=== PATIENT | male | born 1975 | race American Indian/Alaskan Native ===

== ENCOUNTER 2018-11-18 09:50 | Day surgery (SDC) | payer MEDICARE ==
[2018-11-18 11:28] LABS: Basophils % (Auto) 0.8 % (0.0-1.8); Eosinophils # (Auto) 0.1 K/mm3 (0.0-0.4); Eosinophils % (Auto) 1.8 % (0.0-4.3); Hematocrit 44.4 % (35.5-45.6); Hemoglobin 14.7 gm/dl (11.8-15.2); Lymphocytes # (Auto) 1.6 K/mm3 (1.2-5.4); Lymphocytes % (Auto) 40.5 % (13.4-35.0); Mean Corpuscular HGB Conc 33 % (32-34); Mean Corpuscular Volume 82 fl (84-94); Monocytes # (Auto) 0.5 K/mm3 (0.0-0.8); Monocytes % (Auto) 11.4 % (0.0-7.3); Platelet Count 326 K/mm3 (140-440); Red Blood Count 5.44 M/mm3 (3.65-5.03); Red Cell Distribution Width 13.3 % (13.2-15.2)
[2018-11-18 11:38] LABS: INR 0.92 (0.87-1.13)
[2018-11-18 11:39] LABS: Partial Thromboplastin Time 27.2 Sec. (24.2-36.6)
[2018-11-18 11:40] LABS: Blood Urea Nitrogen 19 mg/dL (9-20)
[2018-11-18] MEDS ORDERED: XYLOCAINE 1% 20 mL ONE (12:36)
--- NOTE | 2018-11-18 14:09 | Cat Scan Report ---
FINAL REPORT EXAM: CT HEAD/BRAIN WO CON HISTORY: Hydrocephelus, Myelopathy TECHNIQUE: CT examination of the head without IV contrast PRIORS: None. FINDINGS: No acute air-fluid level visualized in the included air-filled sinuses. Bone windows demonstrate no acute fracture. The brain is without mass, mass effect, hemorrhage, or acute infarct. There is no extra-axial intracranial bleed, brain bleed, or midline shift. The ventricles and sulci are age-appropriate. No CT evidence of hydrocephalus. IMPRESSION: No acute CVA, intracranial bleed, or brain mass
--- NOTE | 2018-11-18 15:33 | Procedure Note ---
Date of procedure: 11/18/18 Pre-op diagnosis: spinal stenosis, radiculopathy, hydrocephalus Post-op diagnosis: same Procedure: cervical, thoracic, and lumbar myelogram Findings: see report Anesthesia: local Surgeon: AARON MARCANO Estimated blood loss: none Pathology: none Condition: stable Disposition: same day
[2018-11-18 18:02] VITALS: BP 138/71
--- NOTE | 2018-11-19 07:45 | Fluoroscopy Report ---
FLUOROSCOPY MYELOGRAM 2+ REGIONS HISTORY: Hydrocephalus, myelopathy. DESCRIPTION OF PROCEDURE. Informed consent was obtained. A timeout was called. Sterile technique was utilized. Skin anesthetization was accomplished with 1% lidocaine. Supply Chain Assistant film of the lumbar region demonstrates posterior fusion hardware spanning from L3-S1. Initial attempt at lumbar puncture at L3-4 was unsuccessful secondary to surgical scarring. A second attempt was successful at the L1-2 level. There was spontaneous return of clear CSF. Approximately 12 cc of intrathecal contrast agent was injected. The contrast agent was free flowing throughout the lumbar region. However, at the level of T10-11, a severe stenosis was demonstrated. This was at the level where previously inserted neurostimulator wires terminate. Very little contrast agent could cross this point into the thoracic and cervical regions. Multiple manipulations were utilized to try to opacify the cervical and thoracic regions. It was decided to perform a delayed CT. The patient tolerated the procedure without difficulty. IMPRESSION: A severe canal stenosis is suspected near the T10-11 level where the neurostimulator wires terminate. Please see above. Please await the formal report from the CT myelogram.
--- NOTE | 2018-11-19 10:09 | Cat Scan Report ---
CT CERVICAL SPINE WITH CONTRAST CT THORACIC SPINE WITH CONTRAST CT LUMBAR SPINE WITH CONTRAST HISTORY: Post myelogram, myelopathy, hydrocephalus. TECHNIQUE: Helical CT was performed at 1.25 mm intervals throughout the cervical, thoracic and lumbar spine following intrathecal contrast administration. Sagittal and coronal reformatted images. FINDINGS: The most striking part of this examination was the marked central canal stenosis near the level of T10-11. This appears to be secondary to the neurostimulator device which terminates at this level. There is good contrast opacification of the thecal sac in the lumbar region. There is partial contrast opacification of the thecal sac in the thoracic region. There is very poor contrast opacification of the thecal sac in the cervical region. Due to the high-grade stenosis at the T10-11 level, very little contrast agent could transverse this obstruction. Within the cervical region, intrathecal contrast is suboptimal. There is normal height and alignment of the cervical vertebral bodies. Mild disc space narrowing and circumferential spurring is noted at C5-6 and C6-7. There is no evidence for canal stenosis at these levels but 50% bilateral neural foraminal narrowing is suspected. The remaining levels are within normal limits. Within the thoracic spine, high-grade central canal stenosis is identified at T10 and T11 secondary to the stimulator device in the posterior spinal canal. This is presumably secondary to scarring associated with the device. The neurostimulator device also generates artifact which limits images in this area. The remaining levels are within normal limits. Within the lumbar spine, there is adequate opacification of the thecal sac. Posterior fusion hardware spans from L3-S1 and generates moderate artifact. There is normal height and alignment of the lumbar vertebra. Disc spacers are noted at L3-4 and L4-5. There is moderate heterotopic bone formation posterior to L3-5 as well as decompressive laminectomies. There is no evidence for fracture, subluxation or bone lesion. The lumbar central canal is widely patent throughout with no evidence for bulging disc, herniation stenosis. The lumbar neural foramen are also widely patent with no significant neuroforaminal stenosis. IMPRESSION: There is severe central canal stenosis at the T10-11 level secondary to the terminus of the neurostimulator wires. Please see above. There is inadequate or very poor opacification of the thecal sac in the cervical and upper thoracic regions secondary to the high-grade stenosis in the lower thoracic region. Mild cervical spondylosis is noted as outlined above. Posterior fusion from L5-S1 appears intact and stable. There is no evidence for canal narrowing or neural foraminal narrowing in the lumbar region.
== END 2018-11-18 16:25 | disposition home or self-care (01) ==
LOC: CATHLABREC 09:50 → EDSTATUS 10:30 → CATHLABREC 16:25
PROVIDERS: ATTEND Specialist
DX: M48.04 Spinal stenosis, thoracic region (principal); M47.12 Other spondylosis with myelopathy, cervical region; G95.89 Other specified diseases of spinal cord; G62.9 Polyneuropathy, unspecified; F41.9 Anxiety disorder, unspecified; Z79.01 Long term (current) use of anticoagulants; Z79.899 Other long term (current) drug therapy; Z98.890 Other specified postprocedural states
CPT/HCPCS: 36415; 62305; 70450; 72125; 72128; 72131; 82565; 84520; 85025; 85610; 85730; Q9967